=== PATIENT | female | born 1985 | race Two or more races ===

== ENCOUNTER 2017-03-03 01:09 | Emergency (ER) | payer MEDICAID ==
[~2017-03-03] VITALS: Ht 162.6 cm; Wt 59.4 kg
[2017-03-03 02:11] VITALS: BP 133/87
[2017-03-03 02:35] LABS: Basophils # (auto) 0.1 uL; Basophils % (auto) 0.5 % (0.0-2.0); Eosinophils # (auto) 0.1 uL; Eosinophils % (auto) 0.6 % (0.0-7.0); Lymphocytes # (auto) 1.5 uL; Lymphocytes % (auto) 13.1 % (10.0-50.0); Mean Corpuscular Hemoglobin 28.4 pg (28.0-32.0); Mean Corpuscular Hgb Conc. 33.4 g/dL (32.0-36.0); Mean Corpuscular Volume 84.9 fL (80.0-100.0); Monocytes # (auto) 0.7 uL; Monocytes % (auto) 5.6 % (0.0-12.0); Neutrophils # (auto) 9.4 uL; Neutrophils % (auto) 80.2 % (37.0-80.0); Nucleated Red Blood Cells % 0.1 %; Platelet Count (auto) 289 10^3/uL (140-450); Red Cell Distribution Width 13.7 % (11.8-14.3); White Blood Cell 11.7 10^3/uL (4.4-10.8)
[2017-03-03 02:56] LABS: Albumin 4.1 g/dL (3.4-5.0); BUN/Creatinine Ratio 18.4; Calcium 9.7 mg/dL (8.5-10.1); INR 0.98 (0.9-1.15); Partial Thromboplastin Time 30.8 sec (22.64-33.71); Potassium 3.9 mmol/L (3.5-5.1); Prothrombin Time 10.7 sec (9.37-12.3)
[2017-03-03 02:59] LABS: Bilirubin, Total 0.9 mg/dL (0.2-1.0); Total Protein 7.7 g/dL (6.4-8.2)
[2017-03-03 03:39] LABS: Urine WBC None Seen /hpf (0 - 5)
[2017-03-03 04:13] LABS: Urine Amorphous Crystal MOD /hpf (None Seen); Urine Bacteria NONE SEEN /hpf (None Seen); Urine Blood Negative /uL (Negative); Urine Specific Gravity 1.025 (1.001-1.035)
== END 2017-03-03 05:24 | disposition left against medical advice (07) ==
LOC: ER 01:09
DX: R10.31 Right lower quadrant pain (principal); R11.2 Nausea with vomiting, unspecified; K59.00 Constipation, unspecified; Z53.21 Procedure and treatment not carried out due to patient leaving prior to being seen by health care provider
CPT/HCPCS: 36415; 80053; 81001; 81025; 82150; 83690; 84702; 85025; 85610; 85730